=== PATIENT | male | born 1950 | race Caucasian/White ===

== ENCOUNTER 2020-11-15 15:01 | Inpatient (IN) | payer OTHER, MEDICARE ==
[~2020-11-15] VITALS: Ht 177.8 cm; Wt 89.6 kg
[2020-12-13 09:40] LABS: BASO # 0.1 (0.0-0.2); BASO % 1.2 % (0.0-2.0); EOS # 0.2 (0.0-0.7); EOS % 2.6 % (0-4.0); GRAN # 4.6 (1.4-6.5); GRAN % 61.9 % (42.2-75.2); HEMATOCRIT 44.6 % (42.0-52.0); HEMOGLOBIN 15.4 g/dl (13.5-18.0); LYMPH # 1.9 (1.2-3.4); LYMPH % 25.5 % (20.0-51.0); MEAN CELL VOLUME 88 fl (80.0-100.0); MEAN CORPUSCULAR HEMOGLOBIN 30 pg (27.0-31.0); MEAN CORPUSCULAR HGB CONC 35 g/dl (33.0-37.0); MEAN PLATELET VOLUME 8.9 fl (7.4-10.4); MONO # 0.6 (0.1-0.6); MONO % 8.5 % (1.7-9.3); PLATELET COUNT 219 K/mm3 (130-400); RED BLOOD COUNT 5.07 M/mm3 (4.20-5.60); REDCELL DISTRIBUTION WIDTH-CV 12.8 % (11.5-14.5)
[2020-12-13 09:50] LABS: ALBUMIN 4.3 gm/dL (3.5-5.0); BILIRUBIN,TOTAL 0.4 mg/dL (0.0-1.0); CALCIUM 9.4 mg/dL (8.4-10.2); CREATININE, serum 0.94 (0.66-1.25); TOTAL PROTEIN 7.4 gm/dL (6.4-8.2)
[2020-12-14] VITALS (9 sets, daily range): BP systolic 116–150; BP diastolic 64–77; PULSE 50–75; TEMP 97.8–98.4
[2020-12-14] MEDS ORDERED: NORVASC 10MG10 MG PO (10:06)
--- NOTE | 2020-12-14 10:08 | NUR ---
TO RM 6 AT 0913- CALL LIGHT IN REACH WILL CALL WITH UPDATES
--- NOTE | 2020-12-14 14:55 | NUR ---
Patient up from OR. Drowsy, benjamin to DD with clear red-tinged urine present. Post op fluids infusing per orders. Post op VSS. Patient states that he feels like he needs to pee, levsin given in pacu. Denies further needs at this time.
--- NOTE | 2020-12-14 19:06 | NUR ---
Patient doing well, ISH to bulb compression with bloody drainage present. Luu maintained to DD with clear red-tinged urine present. Denies needs at this time. Will report off to rn night.
--- NOTE | 2020-12-14 20:00 | NUR ---
Patient resting in bed with no complaints of pain. 5 lap sites to abdomen open to air. ISH site clean, dry, and intact. ISH to bulb suction with bloody drainage. Indwelling catheter draining red tinged urine. Fluids infusing per orders. Patient up and walked the halls standby assist.
[2020-12-15 00:18] VITALS: BP 120/65; PULSE 62; TEMP 98.1
--- NOTE | 2020-12-15 03:28 | NUR ---
Patient has some complaints of gas pain. He is burping but not passing gas. Patient up and walking the halls again. Denies needing any pain medicine.
[2020-12-15 03:45] VITALS: BP 127/63; PULSE 49; TEMP 97.9
[2020-12-15 07:05] LABS: HEMOGLOBIN 12.8 g/dl (13.5-18.0)
[2020-12-15 07:17] LABS: CALCIUM 8.2 mg/dL (8.4-10.2); POTASSIUM 4.1 mmol/L (3.4-5.0)
[2020-12-15 07:30] VITALS: BP 129/60; PULSE 42; TEMP 98.4
--- NOTE | 2020-12-15 10:33 | NUR ---
AUBREY met with the patient to discuss discharge plan. The patient lives in [place] with his , Kelsey (ph#[phone]). He reports independence with ADLs and does not have any DME. The patient's PCP is Dr. Veronica Mcneil and he receives his medications from [facility]. He reports no difficulties obtaining his meds. The patient does not have a DPOA-HC, but he was interested in obtaining a form. AUBREY provided. The patient plans to return home with his upon discharge. No additional needs at this time. *Discharge plan: home with *
--- NOTE | 2020-12-15 11:17 | NUR ---
THIS NURSE EMPTIED 25MLS OUT OF ISH DRAIN. WHILE THIS NURSE WAS ADMINISTERING PATIENTS IV ANTIBIOTICS, BLOOD BEGAN TO COME THROUGH THE GOWN AT ISH SITE DRAIN GAUZE SATURATED. DRESSING REMOVED. ISH SITE RE-DRESSED WITH GAUZE & TEGADERM. ISH DRAIN STRIPPED. THIS NURSE EMPTIED AN ADDITIONAL 20MLS AFTER THE DRESSING WAS CHANGED. PATIENT GIVEN PRN TRAMADOL FOR PAIN RATED A 5-6/10 ON A 0-10 SCALE IN HIS ABDOMEN. WILL CONTINUE TO MONITOR.
[2020-12-15 12:00] VITALS: BP 144/62; PULSE 45; TEMP 98.3
--- NOTE | 2020-12-15 14:06 | NUR ---
First visit from the president [employer]. No needs right now.
--- NOTE | 2020-12-15 15:49 | NUR ---
PATIENTS ISH DRAIN DISCONTINUED PER DOCTOR ORDERS. PATIENT TOLERATED WELL. GAUZE & TEGADERM DRESSING IN PLACE. PATIENT REPORTING PAIN IS BETTER THIS AFTERNOON. PATIENT BELCHING AND PASSING FLATUS. PATIENT DENIES ADDITIONAL NEEDS AT THIS TIME.
[2020-12-15 16:00] VITALS: BP 151/63; PULSE 45; TEMP 97.9
--- NOTE | 2020-12-15 18:00 | NUR ---
REPORT GIVEN TO REJI GARCIA.
--- NOTE | 2020-12-15 19:15 | NUR ---
Pt. met discharge criteria. Gave pt. education on using leg bag. Pt. verbalizes understanding. Reviewed discharge paperwork. Pt. denies further needs. Escorted out by this nurse.
== END 2020-12-15 19:20 | disposition home or self-care (01) | DRG 708 ==
LOC: SURG 12-14 09:01 → INPTSU 12-14 09:01 → SURG 12-14 12:00
PROVIDERS: ADMIT Urology
PROC: 0VB Male Reproductive System, Excision (ICD-10-PCS; 2020-12-14)
PROC: 8E0W4CZ Robotic Assisted Procedure of Trunk Region, Percutaneous Endoscopic Approach (ICD-10-PCS; 2020-12-14)
PROC: 0VT04ZZ Resection of Prostate, Percutaneous Endoscopic Approach (ICD-10-PCS; principal; 2020-12-14 12:00)
DX: C61 Malignant neoplasm of prostate (principal)
CPT/HCPCS: A4314; J0690; J1100; J1885; J2370; J2405; J2704; J3010; J7120

== ENCOUNTER → 2021-05-02 | Outpatient (CLI) | payer OTHER ==
[~2021-05-02] MED LIST: NORVASC 10MG10 MG PO
== END ==
LOC: COL.LAB 14:30
DX: R97.20 Elevated prostate specific antigen [PSA] (principal)

== ENCOUNTER → 2021-05-13 | Outpatient (CLI) | payer OTHER | LOC: COL.RAD 10:10 | DX: M75.122 Complete rotator cuff tear or rupture of left shoulder, not specified as traumatic (principal) ==

== ENCOUNTER → 2021-08-08 | Outpatient (CLI) | payer OTHER | LOC: COL.LAB 14:47 | DX: C61 Malignant neoplasm of prostate (principal) ==

== ENCOUNTER → 2022-05-26 | Outpatient (CLI) | payer OTHER | LOC: COL.LAB 09:32 | DX: Z85.46 Personal history of malignant neoplasm of prostate (principal) ==